=== PATIENT | female | born 1995 | race American Indian/Alaskan Native ===

== ENCOUNTER 2021-08-11 03:39 | Emergency (ER) | payer SELFPAY ==
[2021-08-11 04:14] VITALS: BP 94/63
[2021-08-11] MEDS ORDERED: DEXTROSE 10% *Hypoglycemia IV ONE (08:48)
[2021-08-11] MEDS ORDERED: LORazepam 2 MG/ML VIAL ONE (14:15)
== END 2021-08-11 20:48 | disposition home or self-care (01) ==
LOC: ED 03:39
DX: R10.9 Unspecified abdominal pain (principal); Z53.21 Procedure and treatment not carried out due to patient leaving prior to being seen by health care provider
CPT/HCPCS: J3490; J2060

== ENCOUNTER 2021-11-02 02:36 | Emergency (ER) | payer SELFPAY ==
[2021-11-02 02:49] VITALS: BP 123/87
[2021-11-02 03:46] LABS: Basophils % (Auto) 0.3 % (0.0-1.8); Eosinophils # (Auto) 0.1 K/mm3 (0.0-0.4); Hematocrit 40.7 % (30.3-42.9); Hemoglobin 13.5 gm/dl (10.1-14.3); Lymphocytes # (Auto) 2.3 K/mm3 (1.2-5.4); Lymphocytes % (Auto) 37.1 % (13.4-35.0); Mean Corpuscular HGB Conc 33 % (30-34); Mean Corpuscular Volume 82 fl (79-97); Monocytes # (Auto) 0.6 K/mm3 (0.0-0.8); Monocytes % (Auto) 10.1 % (0.0-7.3); Platelet Count 178 K/mm3 (140-440); Red Blood Count 4.98 M/mm3 (3.65-5.03); Red Cell Distribution Width 14.5 % (13.2-15.2)
[2021-11-02 04:59] LABS: Mucus,Urine 1+ /HPF
[2021-11-02 05:05] LABS: Bilirubin,Urine NEG (Negative); Color,Urine Straw (Yellow)
[2021-11-02 05:06] LABS: Blood,Urine Large (Negative); Protein,Urine <15 mg/dL mg/dL (Negative); Urobilinogen,Urine < 2.0 mg/dL (<2.0)
--- NOTE | 2021-11-02 12:55 | Emergency Department Report ---
ED Female HPI - General Chief complaint: Vaginal Bleeding Stated complaint: 19WKS PREG/BLEEDING Time Seen by Provider: 11/02/21 12:44 Source: patient Mode of arrival: Ambulatory Limitations: No Limitations - History of Present Illness Initial comments: This is a 26-year-old -[place] female who presents to the emergency room with vaginal bleeding. Patient states she is 19 weeks . Unsure of her last menstrual period, A1. Patient states she noticed light pink blood with wipes last night. Patient states shortly after she started feeling diffuse abdominal cramping that radiated to her back. She is currently not followed by [facility], pending emergency Medicaid. Denies passing clots, urinary frequency, urgency, dysuria, or vaginal discharge. MD Complaint: vaginal bleeding - Related Data Allergies Allergy/AdvReac Type Severity Reaction Status Date / Time No Known Allergies Allergy Unverified 08/11/21 20:43 ED Review of Systems ROS: Stated complaint: 19WKS PREG/BLEEDING Other details as noted in HPI Constitutional: denies: chills, fever Respiratory: denies: cough, shortness of breath, wheezing Cardiovascular: denies: chest pain, palpitations Gastrointestinal: abdominal pain. denies: nausea, diarrhea Genitourinary: other (Vaginal bleeding during ). denies: urgency, dysuria, frequency Musculoskeletal: back pain Skin: denies: rash, lesions Neurological: denies: headache, weakness, paresthesias ED Physical Exam - General Limitations: No Limitations General appearance: alert, in no apparent distress - Head Head exam: Present: atraumatic, normocephalic - Respiratory Respiratory exam: Present: normal lung sounds bilaterally. Absent: respiratory distress - Cardiovascular Cardiovascular Exam: Present: regular rate, normal rhythm. Absent: systolic murmur, diastolic murmur, rubs, gallop - GI/Abdominal GI/Abdominal exam: Present: soft, tenderness (Suprapubic), normal bowel sounds. Absent: guarding, rebound, rigid - Back Exam Back exam: Absent: CVA tenderness (R), CVA tenderness (L) - Neurological Exam Neurological exam: Present: alert, oriented X3, normal gait - Psychiatric Psychiatric exam: Present: normal affect, normal mood - Skin Skin exam: Present: warm, dry, intact, normal color. Absent: rash ED Course Vital Signs 11/02/21 02:42 Temperature 99.5 F Pulse Rate 75 Respiratory 18 Rate Blood Pressure 123/87 O2 Sat by Pulse 99 Oximetry ED Medical Decision Making - Lab Data Result diagrams: 11/02/21 03:06 Lab Results 11/02/21 11/02/21 11/02/21 Range/Units 03:06 03:06 03:06 WBC 6.2 (4.5-11.0) K/mm3 RBC 4.98 (3.65-5.03) M/mm3 Hgb 13.5 (10.1-14.3) gm/dl Hct 40.7 (30.3-42.9) % MCV 82 (79-97) fl MCH 27 L (28-32) pg MCHC 33 (30-34) % RDW 14.5 (13.2-15.2) % Plt Count 178 (140-440) K/mm3 Lymph % (Auto) 37.1 H (13.4-35.0) % [place] % (Auto) 10.1 H (0.0-7.3) % Eos % (Auto) 2.0 (0.0-4.3) % Baso % (Auto) 0.3 (0.0-1.8) % Lymph # (Auto) 2.3 (1.2-5.4) K/mm3 [place] # (Auto) 0.6 (0.0-0.8) K/mm3 Eos # (Auto) 0.1 (0.0-0.4) K/mm3 Baso # (Auto) 0.0 (0.0-0.1) K/mm3 Seg Neutrophils % 50.5 (40.0-70.0) % Seg Neutrophils # 3.1 (1.8-7.7) K/mm3 HCG, Qual Positive (Negative) HCG, Quant 4453 H (0-4) mIU/mL Urine Color (Yellow) Urine Turbidity (Clear) Urine pH (5.0-7.0) Ur Specific [place] (1.003-1.030) Urine Protein (Negative) mg/dL Urine Glucose (UA) (Negative) mg/dL Urine Ketones (Negative) mg/dL Urine Blood (Negative) Urine Nitrite (Negative) Ur Reducing Substances Urine Bilirubin (Negative) Urine Ictotest Urine Urobilinogen (<2.0) mg/dL Ur Leukocyte Esterase (Negative) Urine WBC (Auto) (0.0-6.0) /HPF Urine RBC (Auto) (0.0-6.0) /HPF U Epithel Cells (Auto) (0-13.0) /HPF Urine Mucus /HPF Blood Type 11/02/21 11/02/21 Range/Units 03:06 Unknown WBC (4.5-11.0) K/mm3 RBC (3.65-5.03) M/mm3 Hgb (10.1-14.3) gm/dl Hct (30.3-42.9) % MCV (79-97) fl MCH (28-32) pg MCHC (30-34) % RDW (13.2-15.2) % Plt Count (140-440) K/mm3 Lymph % (Auto) (13.4-35.0) % [place] % (Auto) (0.0-7.3) % Eos % (Auto) (0.0-4.3) % Baso % (Auto) (0.0-1.8) % Lymph # (Auto) (1.2-5.4) K/mm3 [place] # (Auto) (0.0-0.8) K/mm3 Eos # (Auto) (0.0-0.4) K/mm3 Baso # (Auto) (0.0-0.1) K/mm3 Seg Neutrophils % (40.0-70.0) % Seg Neutrophils # (1.8-7.7) K/mm3 HCG, Qual (Negative) HCG, Quant (0-4) mIU/mL Urine Color Straw (Yellow) Urine Turbidity Clear (Clear) Urine pH 6.0 (5.0-7.0) Ur Specific [place] 1.025 (1.003-1.030) Urine Protein <15 mg/dl (Negative) mg/dL Urine Glucose (UA) Neg (Negative) mg/dL Urine Ketones Neg (Negative) mg/dL Urine Blood Large A (Negative) Urine Nitrite Negative (Negative) Ur Reducing Substances Not Reportable Urine Bilirubin Neg (Negative) Urine Ictotest Not Reportable Urine Urobilinogen < 2.0 (<2.0) mg/dL Ur Leukocyte Esterase Negative (Negative) Urine WBC (Auto) 1.0 (0.0-6.0) /HPF Urine RBC (Auto) 2.0 (0.0-6.0) /HPF U Epithel Cells (Auto) 7.0 (0-13.0) /HPF Urine Mucus 1+ /HPF Blood Type B POSITIVE - Radiology Data Radiology results: report reviewed Patient: ZINA ANNE MR#: [id number] : 1995 Acct:[id number] Age/Sex: 26 / F ADM Date: 11/02/21 Loc: ED Attending Dr: Ordering Physician: PENNY DENNIS Date of Service: 11/02/21 Procedure(s): US OB <= 14 weeks fetus Accession Number(s): [id number] cc: PENNY DENNIS FIRSTTRIMESTER OBSTETRIC ULTRASOUND HISTORY: 19 weeks gestation, vaginal bleeding, abdominal pain COMPARISON: None. TECHNIQUE: Routine transabdominal OB ultrasound performed. FINDINGS: Uterus: Mildly enlarged measuring 16 x 7 x 8 cm. Gestational Sac: Slightly deformed Yolk Sac: Not seen Fetus/Embryo: Femur length measures 1.2 cm which correlates with a 13 week 5 day . [place]- rump length could not be measured due to position. Embryonic/ anatomy is too small for evaluation. Embryonic/ cardiac activity: 0bpm Placenta: Too small for evaluation. Amniotic fluid volume: Subjectively appropriate for gestational age. Ovaries: The right ovary is normal in size and appearance with normal blood flow, measuring 3.5 x 2.1 x 3.4 cm. The left ovary is normal in size and appearance with normal blood flow, measuring 3.1 x 2.3 x 3.1 cm. Additional findings: None. IMPRESSION No heart rate is detected consistent with demise. Signer Name: Rhett Olea Jr, MD Signed: 11/02/2021 2:48 PM Workstation Name: [id number] Transcribed By: TTR Dictated By: RHETT OELA JR, MD Electronically Authenticated By: RHETT OLEA JR, MD Signed Date/Time: 11/02/21 1448 - Medical Decision Making Is a 26-year-old female who presents to the emergency room with vaginal bleeding at 19 weeks gestation. Vitals are stable. Suprapubic tenderness on exam. Obtain CBC, UA, hCG quant. hCG quant 4453, large amount of blood in urinalysis, and CBC unremarkable. OB ultrasound obtained with findings of demise. Consulted attending Dr. Salas and [facility] Dr. Montenegro. Dr. Garcia advised patient to be discharged and follow-up in the morning outpatient for D&C around 11 AM. Patient given referral to Dr. Montenegro's office for follow-up in the morning. Patient given strict return instructions. Discharged home stable. Critical care attestation.: If time is entered above; I have spent that time in minutes in the direct care of this critically ill patient, excluding procedure time. ED Disposition Clinical Impression: Vaginal bleeding before 22 weeks gestation, Threatened in second trimester, demise Disposition: HOME / SELF CARE / HOMELESS Is pt being admited?: No Condition: Stable Instructions: Threatened Miscarriage, Vaginal Bleeding During , Second Trimester, [id number] Referrals: JORJE MONTENEGRO MD [Staff Physician] - 3-5 Days Forms: Work/School Release Form(ED) Time of Disposition: 16:05
--- NOTE | 2021-11-02 14:52 | Ultrasound Report ---
FIRSTTRIMESTER OBSTETRIC ULTRASOUND HISTORY: 19 weeks gestation, vaginal bleeding, abdominal pain COMPARISON: None. TECHNIQUE: Routine transabdominal OB ultrasound performed. FINDINGS: Uterus: Mildly enlarged measuring 16 x 7 x 8 cm. Gestational Sac: Slightly deformed Yolk Sac: Not seen Fetus/Embryo: Femur length measures 1.2 cm which correlates with a 13 week 5 day . [place]-rum p length could not be measured due to position. Embryonic/ anatomy is too small for evaluation. Embryonic/ cardiac activity: 0bpm Placenta: Too small for evaluation. Amniotic fluid volume: Subjectively appropriate for gestational age. Ovaries: The right ovary is normal in size and appearance with normal blood flow, measuring 3.5 x 2. 1 x 3.4 cm. The left ovary is normal in size and appearance with normal blood flow, measuring 3.1 x 2.3 x 3.1 cm. Additional findings: None. IMPRESSION No heart rate is detected consistent with demise. Signer Name: Rhett Olea Jr, MD Signed: 11/02/2021 2:48 PM Workstation Name: [id number]
== END 2021-11-02 16:15 | disposition home or self-care (01) ==
LOC: ED 02:36
DX: O20.0 Threatened abortion (principal); Z3A.22 22 weeks gestation of pregnancy
CPT/HCPCS: 36415; 76801; 81001; 84702; 84703; 85025; 86900; 86901; 99284